=== PATIENT | female | born 1950 | race Caucasian/White ===

== ENCOUNTER 2016-10-29 21:47 | Inpatient (IN) | payer OTHER ==
[~2016-10-29] VITALS: Ht 144.8 cm; Wt 62.1 kg
[~2016-10-29 21:47] MED LIST: LOPRESSOR50 MG PO
[2016-10-30 11:34] VITALS: BP 160/91
[2016-10-30 19:44] LABS: HEMATOCRIT 36.3 % (36.0-46.0); MCH 26.2 PG (29.0-34.0); MCHC 32.8 G/DL (30.0-36.0); MEAN PLAT.VOLUME 8.8 uM^3 (9.5-12.4); PLATELET COUNT 349 K/uL (156-360); RBC DIS.WIDTH-CV 14.6 % (11.8-14.6); RBC DIS.WIDTH-SD 42.6 % (39-53); RED BLOOD COUNT 4.54 M/uL (3.80-5.20); WHITE BLOOD COUNT 6.9 K/uL (4.1-10.2)
[2016-10-30 20:08] LABS: ANION GAP 10 MEQ/L (2-14); CHLORIDE 104 MEQ/L (99-109); GFR ESTIMATE (CALCULATED) > 59 mL/min/; GLUCOSE 145 mg/dL (70-99); POTASSIUM 3.6 MEQ/L (3.7-5.4); SAMPLE HEMOLYSIS CHECK 0; SAMPLE ICTERIC CHECK 0; SAMPLE LIPEMIA CHECK 0; SODIUM 134 MEQ/L (136-147); UREA NITROGEN (BUN) 8 mg/dL (9-23)
[2016-10-30 20:12] VITALS: BP 166/78
[2016-10-30 23:41] VITALS: BP 126/77
[2016-10-31 03:53] VITALS: BP 131/73
[2016-10-31 06:13] LABS: HEMATOCRIT 32.6 % (36.0-46.0); MCH 25.1 PG (29.0-34.0); MCHC 31.6 G/DL (30.0-36.0); MCV 79.5 FL (83-99); MEAN PLAT.VOLUME 8.8 uM^3 (9.5-12.4); PLATELET COUNT 368 K/uL (156-360); RBC DIS.WIDTH-CV 14.5 % (11.8-14.6); RBC DIS.WIDTH-SD 42.3 % (39-53); WHITE BLOOD COUNT 7.4 K/uL (4.1-10.2)
[2016-10-31 06:34] LABS: ANION GAP 5 MEQ/L (2-14); CHLORIDE 102 MEQ/L (99-109); GFR ESTIMATE (CALCULATED) > 59 mL/min/; GLUCOSE 151 mg/dL (70-99); SAMPLE HEMOLYSIS CHECK 0; SAMPLE ICTERIC CHECK 0; SAMPLE LIPEMIA CHECK 0; SODIUM 134 MEQ/L (136-147); UREA NITROGEN (BUN) 7 mg/dL (9-23)
[2016-10-31 07:30] VITALS: BP 123/73
[2016-10-31 11:35] VITALS: BP 140/66
[2016-10-31 16:05] VITALS: BP 146/70
[2016-10-31 19:53] VITALS: BP 112/60
[2016-11-01 00:05] VITALS: BP 126/71
[2016-11-01 03:45] VITALS: BP 123/71
[2016-11-01 06:00] LABS: HEMATOCRIT 28.5 % (36.0-46.0); MCH 26.3 PG (29.0-34.0); MCHC 33.7 G/DL (30.0-36.0); MCV 78.1 FL (83-99); MEAN PLAT.VOLUME 8.9 uM^3 (9.5-12.4); PLATELET COUNT 342 K/uL (156-360); RBC DIS.WIDTH-CV 14.6 % (11.8-14.6); RBC DIS.WIDTH-SD 41.1 % (39-53); RED BLOOD COUNT 3.65 M/uL (3.80-5.20); WHITE BLOOD COUNT 5.2 K/uL (4.1-10.2)
[2016-11-01 06:23] LABS: ANION GAP 4 MEQ/L (2-14); CHLORIDE 101 MEQ/L (99-109); GFR ESTIMATE (CALCULATED) > 59 mL/min/; POTASSIUM 4.6 MEQ/L (3.7-5.4); SAMPLE HEMOLYSIS CHECK 0; SAMPLE ICTERIC CHECK 0; SAMPLE LIPEMIA CHECK 0; SODIUM 132 MEQ/L (136-147); UREA NITROGEN (BUN) 7 mg/dL (9-23)
[2016-11-01 06:25] LABS: GLUCOSE 95 mg/dL (70-99)
[2016-11-01 07:00] VITALS: BP 135/74
[2016-11-01] MEDS ORDERED: TRAMADOL HCL50 MG PO (09:37)
== END 2016-11-01 11:47 | disposition home or self-care (01) | DRG 742 ==
LOC: ENRESERV 21:47 → EDSTATUS 10-30 09:54 → 2SOUTH 10-30 09:55 → 2EAST 10-30 10:44 → 2SOUTH 10-30 10:56 → SDC 10-30 15:24 → ENRESERV 10-30 16:43 → 2EAST 10-30 17:59
PROVIDERS: Obstetrics & Gynecology Gynecologic Oncology
DX: D27.1 Benign neoplasm of left ovary (principal); R18.8 Other ascites; J90 Pleural effusion, not elsewhere classified; I10 Essential (primary) hypertension; K21.9 Gastro-esophageal reflux disease without esophagitis; Q82.0 Hereditary lymphedema; Z87.891 Personal history of nicotine dependence
CPT/HCPCS: 36415; 80048; 85027; 86870; 86900; 86901; 86905; 86920; 88108; 88305; 88307; 94799; J0131; J0690; J1100; J1170; J1650; J1885; J2250; J2405; J2704; J2710; J2765; J3010